=== PATIENT | female | born 1965 | race Caucasian/White ===

== ENCOUNTER 2018-07-13 06:17 | Day surgery (SDC) | payer OTHER ==
[2018-07-13] MEDS ORDERED: Sodium Chloride 0.9% 1,000 ML IV SCH (07:00)
[2018-07-13] MEDS ORDERED: Propofol 200 MG/20 ML SDV ONE ×2 (07:37→08:14)
[2018-07-13] MEDS ORDERED: Midazolam 1 MG/ML 2 ML SDV ONE (07:37)
[2018-07-13] MEDS ORDERED: fentaNYL 100 MCG/2 ML SDV ONE (07:37)
--- NOTE | 2018-07-13 11:02 | OR ---
DATE OF PROCEDURE: 07/13/2018 PROCEDURE: Colonoscopy. FINDINGS: 1. Transverse colon polyp, approximately 5 mm, completely removed using cold biopsy forceps. 2. Descending colon polyp #1 approximately 5 mm, completely removed using cold biopsy forceps. 3. Sigmoid colon polyp, approximately 8 mm, completely removed using cold snare. COMPLICATIONS: None. FOOD QUALITY TESTER: None. ANESTHESIA: MAC. RISKS: Risks, benefits, alternatives, and limitations including, but not limited to infection, bleeding, and perforation were explained to the patient who wished to proceed. PREOPERATIVE DIAGNOSIS: History of colon polyps/screening colonoscopy. POSTOPERATIVE DIAGNOSIS: History of colon polyps/screening colonoscopy. PROCEDURE IN DETAIL: The patient was placed in left lateral decubitus position. Digital rectal exam was performed without abnormality. The scope was introduced and advanced atraumatically to the ileocecal valve. The scope was brought back to the ascending, transverse, and descending colon, and retroflexed. The patient did have very tortuous sigmoid colon. The prep was moderately acceptable. The aforementioned polyps were all identified and completely removed. No abnormalities on retroflex. The patient tolerated the procedure well. Dimas Giordano MD /[id number]
[2018-07-13 12:32] VITALS: BP 115/56
== END 2018-07-13 10:23 | disposition home or self-care (01) ==
LOC: JP.SDS 06:17
PROVIDERS: ATTEND Surgery
DX: Z12.11 Encounter for screening for malignant neoplasm of colon (principal); D12.3 Benign neoplasm of transverse colon; K63.5 Polyp of colon; I10 Essential (primary) hypertension; E66.9 Obesity, unspecified; K21.9 Gastro-esophageal reflux disease without esophagitis; E78.5 Hyperlipidemia, unspecified; F32.9 Major depressive disorder, single episode, unspecified; Z86.010 Personal history of colon polyps; Z88.0 Allergy status to penicillin
CPT/HCPCS: 45380; 45385; J2250; J2704; J3010; J7030

== ENCOUNTER 2019-08-11 23:56 | Emergency (ER) | payer OTHER ==
[2019-08-12] MEDS ORDERED: Sodium Chloride 0.9% 10 ML Syringe FLUSH PRN (00:31)
[2019-08-12] MEDS ORDERED: Ondansetron 4 MG/2 ML SDV IVPUSH ONE (00:33)
[2019-08-12] MEDS ORDERED: fentaNYL 100 MCG/2 ML SDV IVPUSH ONE (00:33)
--- NOTE | 2019-08-12 00:35 | EDM.PDOC ---
ED HPI GENERAL MEDICAL PROBLEM - General Chief Complaint: Abdominal Pain Stated Complaint: STOMACH PAINS Time Seen by Provider: 08/12/19 00:29 Source of Information: Reports: Patient, RN Notes Reviewed History Limitations: Reports: No Limitations - History of Present Illness INITIAL COMMENTS - FREE TEXT/NARRATIVE: 54-year-old female presents emergency department a complaint of abdominal pain, she states the pain awoke her from sleep about 1 hour prior significant nausea and vomiting the most remarkable thing for her she has a large amount of abdominal distention. States she felt fine yesterday. No shortness of breath or chest pain Upper Abdomen Pain Score (Numeric/FACES): 8 - Related Data Allergies Allergy/AdvReac Type Severity Reaction Status Date / Time Penicillins Allergy Other Verified 08/12/19 00:14 Home Meds: Home Meds Aspirin [Children's Aspirin] 81 mg PO DAILY 06/24/16 [History] Lisinopril/Hydrochlorothiazide [Lisinopril-Hctz 10-12.5 mg Tab] 1 tab PO DAILY 06/24/16 [History] Metoprolol Tartrate 100 mg PO DAILY 06/24/16 [History] Venlafaxine [Effexor] 75 mg PO DAILY 06/24/16 [History] Venlafaxine [Venlafaxine HCl ER] 150 mg PO DAILY 06/24/16 [History] Escitalopram [Lexapro] 20 mg PO DAILY 07/11/18 [History] Magnesium Oxide [Magnesium] 400 mg PO DAILY 08/12/19 [History] Past Medical History HEENT History: Reports: Impaired Vision Cardiovascular History: Reports: High Cholesterol, Hypertension Gastrointestinal History: Reports: GERD HHAS History: Reports: Musculoskeletal History: Reports: Back Pain, Chronic, Osteoarthritis Neurological History: Reports: Migraines Psychiatric History: Reports: Depression, Panic Attack Endocrine/Metabolic History: Reports: Obesity/BMI 30+ - Infectious Disease History Infectious Disease History: Reports: Chicken Pox - Past Surgical History GI Surgical History: Reports: Appendectomy, EGD Endocrine Surgical History: Reports: None Neurological Surgical History: Reports: None Social & Family History - Tobacco Use Smoking Status *Q: Never Smoker Second Hand Smoke Exposure: No - Caffeine Use Caffeine Use: Reports: Coffee - Recreational Drug Use Recreational Drug Use: No ED ROS GENERAL - Review of Systems Review Of Systems: See Below Constitutional: Denies: Fever HEENT: Reports: No Symptoms Respiratory: Reports: No Symptoms Cardiovascular: Reports: No Symptoms GI/Abdominal: Reports: Abdominal Pain, Flatus, Nausea, Vomiting : Reports: No Symptoms ED EXAM, GI/ABD - Physical Exam Exam: See Below Exam Limited By: No Limitations General Appearance: Alert, Mild Distress Respiratory/Chest: No Respiratory Distress, Lungs Clear, Normal Breath Sounds, No Accessory Muscle Use, Chest Non-Tender Cardiovascular: Regular Rate, Rhythm, No Murmur GI/Abdominal Exam: Soft, Distended, Tender Course - Vital Signs Last Recorded V/S: Last Vital Signs Temp 98.6 F 08/12/19 02:38 Pulse 98 08/12/19 02:38 Resp 19 08/12/19 02:38 BP 154/78 H 08/12/19 02:38 Pulse Ox 98 08/12/19 02:38 - Orders/Labs/Meds Orders: Active Orders 24 hr Category Date Time Status Peripheral IV Care [RC] . DIRECTED Care 08/12/19 00:32 Active Lactated Ringers [Ringers, Lactated] 1,000 ml Med 08/12/19 00:45 Active IV ASDIRECTED Sodium Chloride 0.9% [Saline Flush] Med 08/12/19 00:31 Active 10 ml FLUSH ASDIRECTED PRN Peripheral IV Insertion Adult [OM.PC] Urgent Oth 08/12/19 00:31 Ordered Medication Orders Lactated Ringer's (Ringers, Lactated) 1,000 mls @ 999 mls/hr IV ASDIRECTED GUILHERME Last Admin: 08/12/19 00:53 Dose: 999 mls/hr Sodium Chloride (Saline Flush) 10 ml FLUSH ASDIRECTED PRN PRN Reason: Keep Vein Open Labs: Laboratory Tests 08/12/19 08/12/19 08/12/19 Range/Units 00:45 00:45 00:45 WBC 6.2 (4.5-11.0) K/uL RBC 5.36 (3.30-5.50) M/uL Hgb 17.0 H (12.0-15.0) g/dL Hct 51.8 H (36.0-48.0) % MCV 97 (80-98) fL MCH 32 H (27-31) pg MCHC 33 (32-36) % Plt Count 146 L (150-400) K/uL Neut % (Auto) 79 H (36-66) % Lymph % (Auto) 12 L (24-44) % Coos % (Auto) 6 (2-6) % Eos % (Auto) 3 (2-4) % Baso % (Auto) 0 (0-1) % Sodium 142 (140-148) mmol/L Potassium 4.8 (3.6-5.2) mmol/L Chloride 101 (100-108) mmol/L Carbon Dioxide 24 (21-32) mmol/L Anion Gap 16.8 H (5.0-14.0) mmol/L BUN 11 (7-18) mg/dL Creatinine 0.6 (0.6-1.0) mg/dL Est Cr Clr Drug Dosing 103.02 mL/min Estimated GFR (MDRD) > 60 (>60) Glucose 122 H (74-106) mg/dL Lactic Acid 3.2 H (0.4-2.0) mmol/L Calcium 9.2 (8.5-10.1) mg/dL Total Bilirubin 0.6 (0.2-1.0) mg/dL AST 55 H (15-37) U/L ALT 55 (12-78) U/L Alkaline Phosphatase 148 H (46-116) U/L Troponin I < 0.017 (0.000-0.056) ng/mL Total Protein 7.7 (6.4-8.2) g/dL Albumin 3.7 (3.4-5.0) g/dL Globulin 4.0 H (2.3-3.5) g/dL Albumin/Globulin Ratio 0.9 L (1.2-2.2) Lipase 221 (73-393) U/L Urine Color (YELLOW) Urine Appearance (CLEAR) Urine pH (5.0-8.0) Ur Specific [place] (1.008-1.030) Urine Protein (NEGATIVE) mg/dL Urine Glucose (UA) (NEGATIVE) mg/dL Urine Ketones (NEGATIVE) mg/dL Urine Occult Blood (NEGATIVE) Urine Nitrite (NEGATIVE) Urine Bilirubin (NEGATIVE) Urine Urobilinogen (0.2-1.0) EU/dL Ur Leukocyte Esterase (NEGATIVE) Urine RBC (0-5) Urine WBC (0-5) Ur Epithelial Cells Amorphous Sediment Urine Bacteria Urine Mucus 08/12/19 Range/Units 02:13 WBC (4.5-11.0) K/uL RBC (3.30-5.50) M/uL Hgb (12.0-15.0) g/dL Hct (36.0-48.0) % MCV (80-98) fL MCH (27-31) pg MCHC (32-36) % Plt Count (150-400) K/uL Neut % (Auto) (36-66) % Lymph % (Auto) (24-44) % Coos % (Auto) (2-6) % Eos % (Auto) (2-4) % Baso % (Auto) (0-1) % Sodium (140-148) mmol/L Potassium (3.6-5.2) mmol/L Chloride (100-108) mmol/L Carbon Dioxide (21-32) mmol/L Anion Gap (5.0-14.0) mmol/L BUN (7-18) mg/dL Creatinine (0.6-1.0) mg/dL Est Cr Clr Drug Dosing mL/min Estimated GFR (MDRD) (>60) Glucose (74-106) mg/dL Lactic Acid (0.4-2.0) mmol/L Calcium (8.5-10.1) mg/dL Total Bilirubin (0.2-1.0) mg/dL AST (15-37) U/L ALT (12-78) U/L Alkaline Phosphatase (46-116) U/L Troponin I (0.000-0.056) ng/mL Total Protein (6.4-8.2) g/dL Albumin (3.4-5.0) g/dL Globulin (2.3-3.5) g/dL Albumin/Globulin Ratio (1.2-2.2) Lipase (73-393) U/L Urine Color Yellow (YELLOW) Urine Appearance Clear (CLEAR) Urine pH 7.0 (5.0-8.0) Ur Specific [place] 1.010 (1.008-1.030) Urine Protein Negative (NEGATIVE) mg/dL Urine Glucose (UA) Negative (NEGATIVE) mg/dL Urine Ketones Negative (NEGATIVE) mg/dL Urine Occult Blood Trace-intact H (NEGATIVE) Urine Nitrite Positive H (NEGATIVE) Urine Bilirubin Negative (NEGATIVE) Urine Urobilinogen 0.2 (0.2-1.0) EU/dL Ur Leukocyte Esterase Small H (NEGATIVE) Urine RBC 0-5 (0-5) Urine WBC 5-10 H (0-5) Ur Epithelial Cells Few Amorphous Sediment Not seen Urine Bacteria Few Urine Mucus Not seen Meds: Medications Generic Name Dose Route Start Last Admin Trade Name Freq PRN Reason Stop Dose Admin Lactated Ringer's 1,000 mls @ 999 mls/hr 08/12/19 00:45 08/12/19 00:53 Ringers, Lactated IV 999 mls/hr ASDIRECTED GUILHERME Administration Sodium Chloride 10 ml 08/12/19 00:31 Saline Flush FLUSH ASDIRECTED PRN Keep Vein Open Discontinued Medications Generic Name Dose Route Start Last Admin Trade Name Freq PRN Reason Stop Dose Admin Fentanyl 50 mcg 08/12/19 00:33 08/12/19 00:54 Sublimaze IVPUSH 08/12/19 00:34 50 mcg ONETIME ONE Administration Sodium Chloride 85 mls @ 4 mls/sec 08/12/19 00:53 08/12/19 01:05 Normal Saline IV 08/12/19 00:54 4 mls/sec ASDIRECTED STA Administration Iopamidol 150 ml 08/12/19 00:52 08/12/19 01:05 Isovue-300 (61%) IV 08/12/19 00:53 150 ml . DIRECTED STA Administration Ondansetron HCl 4 mg 08/12/19 00:33 08/12/19 00:53 Zofran IVPUSH 08/12/19 00:34 4 mg ONETIME ONE Administration Departure - Departure Time of Disposition: 02:46 Disposition: Home, Self-Care 01 Condition: Fair Clinical Impression: UTI (urinary tract infection) Qualifiers: Urinary tract infection type: acute cystitis Hematuria presence: without hematuria Qualified Code(s): N30.00 - Acute cystitis without hematuria - Discharge Information Instructions: Urinary Tract Infection, Adult, [id number] Referrals: PCP,None [Primary Care Provider] - Forms: ED Department Discharge Additional Instructions: Take full course of antibiotics, please followup with your primary care provider in 3-5 days if not better, please call return to the emergency department with worsening of symptoms. Sepsis Event Note - Evaluation Sepsis Screening Result: Possible Sepsis Risk - Focused Exam Vital Signs: Vital Signs Temp Pulse Resp BP Pulse Ox 08/12/19 02:38 98.6 F 98 19 154/78 H 98 08/12/19 00:18 96.6 F L 115 H 12 172/78 H 98 08/12/19 00:04 96.1 F L 117 H 16 176/96 H 98 Date Exam was Performed: 08/12/19 Time Exam was Performed: 02:45 - My Orders Last 24 Hours: My Active Orders 08/12/19 00:31 Sodium Chloride 0.9% [Saline Flush] 10 ml FLUSH ASDIRECTED PRN Peripheral IV Insertion Adult [OM.PC] Urgent 08/12/19 00:32 Peripheral IV Care [RC] . DIRECTED 08/12/19 00:45 Lactated Ringers [Ringers, Lactated] 1,000 ml IV ASDIRECTED - Assessment/Plan Last 24 Hours: My Active Orders 08/12/19 00:31 Sodium Chloride 0.9% [Saline Flush] 10 ml FLUSH ASDIRECTED PRN Peripheral IV Insertion Adult [OM.PC] Urgent 08/12/19 00:32 Peripheral IV Care [RC] . DIRECTED 08/12/19 00:45 Lactated Ringers [Ringers, Lactated] 1,000 ml IV ASDIRECTED Plan: Assessment Acuity = acute Site and laterality = urinary tract infection Etiology = probable bacterial cause Manifestations = nausea and vomiting Location of injury = Home Lab values = CBC unremarkable CMP unremarkable lactic acid elevated 3.2 consistent lactic acidosis probably related to nausea and vomiting, troponins negative urinalysis is positive for nitrates with 5-10 WBCs consistent with pyuria CT scan shows no acute process Plan Good relief with treatment provided in the ED which did include fentanyl and Zofran as well as 1 L fluids, urine culture is pending placed on Bactrim DS 1 tab p.o. twice daily x3 days follow-up primary care 3 to 5 days if not better This note was dictated using [employer] voice recognition software please call with any questions on syntax or grammar.
[2019-08-12] MEDS ORDERED: Lactated Ringers 1,000 ML IV SCH (00:45)
[2019-08-12] MEDS ORDERED: Iopamidol 612 MG/ML 150 ML Bottle IV STA (00:52)
--- NOTE | 2019-08-12 01:53 | CRLCT ---
INDICATION: Abdominal distension COMPARISON: None available TECHNIQUE: CT examination of the abdomen and pelvis was performed with the uneventful intravenous administration of 150 cc of Isovue-300 while 3 mm thick axial sections were obtained from the lung bases through the pubic symphysis. Oral contrast was not administered. Please note that all CT scans at this facility use dose modulation, iterative reconstruction, and/or weight-based dosing when appropriate to reduce radiation dose to as low as reasonably achievable. FINDINGS: In the abdomen, the liver, spleen, pancreas, and adrenals are normal in appearance. The kidneys are normal in appearance. There is a diverticulum arising from the anterior gallbladder measuring 3.5 centimeters in diameter. The gallbladder is moderately distended but is otherwise normal in appearance. The abdominal aorta is normal in caliber with no sign of dilatation. There is no sign of retroperitoneal mass or adenopathy. The stomach, loops of small bowel, and colon in the abdomen are normal in appearance. In the pelvis, the appendix is nonvisualized, but there is no sign of an inflammatory process in the area of the appendix. Surgical clips are seen in the area of the appendix consistent with previous appendectomy. The loops of small bowel and colon in the pelvis are normal in appearance. The uterus and adnexal regions are normal in appearance. The urinary bladder is normal in appearance. There is no sign of pelvic or inguinal mass or adenopathy. There is no sign of any free air or free fluid in the abdomen or pelvis. The lung bases are clear. There is grade 1 anterior subluxation of L4 on L5 without L4 pars interarticularis defects. There is mild L4-5 disc degenerative disease. There is grade 1 anterior subluxation of L5 on S1 without L5 pars interarticularis defects. The L5-S1 disc space is normal in height. IMPRESSION: Nothing seen to correlate with the history of abdominal distention. No sign of distension of the stomach, small bowel, or colon. CT of the abdomen shows nonspecific moderate distention of the gallbladder with what appears to be a diverticulum arising from the anterior gallbladder. Normal CT of the pelvis with contrast. Please note that all CT scans at this facility use dose modulation, iterative reconstruction, and/or weight-based dosing when appropriate to reduce radiation dose to as low as reasonably achievable. Dictated by Iván Rutherford MD @ Aug 12 2019 1:46AM Signed by Dr. Iván Rutherford @ Aug 12 2019 1:50AM
[2019-08-12 02:39] VITALS: BP 154/78; PULSE 98
== END 2019-08-12 03:13 | disposition home or self-care (01) ==
LOC: JP.ED 23:56
DX: N30.00 Acute cystitis without hematuria (principal); I10 Essential (primary) hypertension; E78.00 Pure hypercholesterolemia, unspecified; K21.9 Gastro-esophageal reflux disease without esophagitis; E66.9 Obesity, unspecified; Z68.35 Body mass index [BMI] 35.0-35.9, adult; Z79.82 Long term (current) use of aspirin; Z79.899 Other long term (current) drug therapy; Z88.0 Allergy status to penicillin
CPT/HCPCS: 36415; 74177; 80053; 81001; 83605; 83690; 84484; 85025; 87086; 96361; 96374; 96375; 99284; J2405; J3010; J7050; J7120; Q9967

== ENCOUNTER 2020-07-07 18:39 | Inpatient (IN) | payer OTHER ==
[2020-07-07] MEDS ORDERED: HYDROmorphone 1 MG/ML Syringe IM ONE (19:46)
--- NOTE | 2020-07-07 20:12 | EDM.PDOC ---
ED HPI GENERAL MEDICAL PROBLEM - General Chief Complaint: Lower Extremity Injury/Pain Stated Complaint: FELL HIT BACK AND BUTT ON STAIRS Time Seen by Provider: 07/07/20 19:30 Source of Information: Reports: Patient, Family History Limitations: Reports: No Limitations - History of Present Illness INITIAL COMMENTS - FREE TEXT/NARRATIVE: 55-year-old female slipped on her stairs about 6 hours ago landing hard on her tailbone and left buttock area. She has been icing the posterior aspect of the buttock and back but is having persistent swelling and pain. She can now no longer tolerate weightbearing or walking. No neuropathic symptoms down the extremities, no abdominal pain. Onset: Sudden Duration: Hour(s): (6 hours ago) Location: Reports: Back, Pelvis (Left buttock) Quality: Reports: Burning, Stabbing Worsens with: Reports: Other (Weightbearing), Movement Associated Symptoms: Reports: No Other Symptoms Left Lower Back Pain Score (Numeric/FACES): 0 - Related Data Allergies Allergy/AdvReac Type Severity Reaction Status Date / Time Penicillins Allergy Other Verified 07/07/20 19:33 Home Meds: Home Meds Aspirin [Children's Aspirin] 81 mg PO DAILY 06/24/16 [History] Lisinopril/Hydrochlorothiazide [Lisinopril-Hctz 10-12.5 mg Tab] 1 tab PO DAILY 06/24/16 [History] Metoprolol Tartrate 100 mg PO DAILY 06/24/16 [History] Venlafaxine [Effexor] 75 mg PO DAILY 06/24/16 [History] Venlafaxine [Venlafaxine HCl ER] 150 mg PO DAILY 06/24/16 [History] Escitalopram [Lexapro] 20 mg PO DAILY 07/11/18 [History] Magnesium Oxide [Magnesium] 400 mg PO DAILY 08/12/19 [History] atorvaSTATin [Lipitor] 1 tab PO DAILY 07/07/20 [History] Past Medical History HEENT History: Reports: Impaired Vision Cardiovascular History: Reports: High Cholesterol, Hypertension Gastrointestinal History: Reports: GERD 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: Musculoskeletal History: Reports: Back Pain, Chronic, Osteoarthritis Neurological History: Reports: Migraines Psychiatric History: Reports: Depression, Panic Attack Endocrine/Metabolic History: Reports: Obesity/BMI 30+ - Infectious Disease History Infectious Disease History: Reports: Chicken Pox - Past Surgical History HEENT Surgical History: Reports: None Cardiovascular Surgical History: Reports: None GI Surgical History: Reports: Appendectomy, EGD Endocrine Surgical History: Reports: None Neurological Surgical History: Reports: None Musculoskeletal Surgical History: Reports: None Social & Family History - Tobacco Use Tobacco Use Status *Q: Former Tobacco User Used Tobacco, but Quit: Yes Month/Year Tobacco Last Used: 07/2013 - Caffeine Use Caffeine Use: Reports: None - Alcohol Use Number of Drinks Per Day: 3 - Recreational Drug Use Recreational Drug Use: No Review of Systems - Review of Systems Review Of Systems: See Below Constitutional: Denies: Fever Respiratory: Reports: No Symptoms Cardiovascular: Reports: No Symptoms GI/Abdominal: Denies: Abdominal Pain Genitourinary: Reports: No Symptoms Skin: Denies: Bruising Neurological: Denies: Paresthesia ED EXAM, GENERAL - Physical Exam Exam: See Below Exam Limited By: No Limitations General Appearance: Alert, Anxious, Moderate Distress Eye Exam: Bilateral Eye: Normal Inspection Head: Atraumatic Respiratory/Chest: No Respiratory Distress, Lungs Clear Cardiovascular: Regular Rate, Rhythm Extremities: Other (Significant swelling around the left buttock with exquisite tenderness to any palpation) Neurological: Alert, Oriented Course - Vital Signs Last Recorded V/S: Last Vital Signs Temp 97.3 F 07/07/20 22:00 Pulse 74 07/07/20 22:00 Resp 18 07/07/20 22:00 BP 126/67 07/07/20 22:00 Pulse Ox 92 L 07/07/20 22:00 - Orders/Labs/Meds Orders: Active Orders 24 hr Category Date Time Status Admission Status [Patient Status] [ADT] Routine ADT 07/07/20 20:45 Active Medication Orders Hydromorphone HCl (Dilaudid) 0.5 mg IVPUSH Q2H PRN PRN Reason: Pain Last Admin: 07/07/20 22:05 Dose: 0.5 mg Documented by: ELISEO Sodium Chloride (Normal Saline) 1,000 mls @ 150 mls/hr IV ASDIRECTED GUILHERME Last Admin: 07/07/20 22:03 Dose: 150 mls/hr Documented by: ELISEO Influenza Virus Vaccine (Fluzone Quad Syringe) 60 mcg IM .ONCE ONE Stop: 07/08/20 09:01 Ondansetron HCl (Zofran) 4 mg IVPUSH Q4H PRN PRN Reason: Nausea/Vomiting Labs: Laboratory Tests 07/07/20 07/07/20 Range/Units 20:00 20:00 WBC 8.4 (4.5-11.0) K/uL RBC 4.11 (3.30-5.50) M/uL Hgb 13.4 D (12.0-15.0) g/dL Hct 40.6 (36.0-48.0) % MCV 99 H (80-98) fL MCH 33 H (27-31) pg MCHC 33 (32-36) % Plt Count 220 (150-400) K/uL Neut % (Auto) 59 (36-66) % Lymph % (Auto) 29 (24-44) % Chambers % (Auto) 7 H (2-6) % Eos % (Auto) 5 H (2-4) % Baso % (Auto) 2 H (0-1) % Sodium 138 L (140-148) mmol/L Potassium 3.4 L (3.6-5.2) mmol/L Chloride 101 (100-108) mmol/L Carbon Dioxide 28 (21-32) mmol/L Anion Gap 12.4 (5.0-14.0) mmol/L BUN 17 D (7-18) mg/dL Creatinine 0.8 (0.6-1.0) mg/dL Est Cr Clr Drug Dosing 76.36 mL/min Estimated GFR (MDRD) > 60 (>60) Glucose 113 H (74-106) mg/dL Calcium 8.6 (8.5-10.1) mg/dL Meds: Medications Generic Name Dose Route Start Last Admin Trade Name Freq PRN Reason Stop Dose Admin Hydromorphone HCl 0.5 mg 07/07/20 21:53 07/07/20 22:05 Dilaudid IVPUSH 0.5 mg Q2H PRN Administration Pain Sodium Chloride 1,000 mls @ 150 mls/hr 07/07/20 22:00 07/07/20 22:03 Normal Saline IV 150 mls/hr ASDIRECTED GUILHERME Administration Influenza Virus Vaccine 60 mcg 07/08/20 09:00 Fluzone Quad [id number] Syringe IM 07/08/20 09:01 .ONCE ONE Ondansetron HCl 4 mg 07/07/20 21:55 Zofran IVPUSH Q4H PRN Nausea/Vomiting Discontinued Medications Generic Name Dose Route Start Last Admin Trade Name Freq PRN Reason Stop Dose Admin Hydromorphone HCl 1 mg 07/07/20 19:46 07/07/20 19:53 Dilaudid IM 07/07/20 19:47 1 mg ONETIME ONE Administration Sodium Chloride 1,000 mls @ 150 mls/hr 07/07/20 20:45 07/07/20 21:35 Normal Saline IV 150 mls/hr ASDIRECTED GUILHERME Administration Influenza Virus Vaccine 1 each 07/07/20 21:48 Pharmacy To Dose - Influenza Vaccine IM 07/07/20 21:49 ONETIME ONE - Re-Assessments/Exams Free Text/Narrative Re-Assessment/Exam: 07/07/20 20:12 CBC, BMP obtained and the patient was given 1 mg of IM Dilaudid. CT the pelvis was ordered without contrast to assess the size of the hematoma and to look for any underlying possible fractures. 07/07/20 20:54 IMPRESSION: New large deep subcutaneous hematoma in the left buttock, extending from right of midline across the left hip and iliac wing. No sign of any associated underlying acute osseous injury, with intact appearance of the sacrum, left sacroiliac joint, left iliac wing, and left hip. Stable grade 1 anterior subluxation of L4 on L5 and of L5 on S1. Stable prominent bilateral L5-S1 and moderate bilateral L4-5 facet arthropathy. Above findings were discussed with Dr. Bush, patient will be admitted for pain control tonight and evaluated tomorrow for possible surgical removal of the hematoma. Departure - Departure Time of Disposition: 21:47 Disposition: Admitted As Inpatient 65 Clinical Impression: Traumatic hematoma of buttock Qualifiers: Encounter type: initial encounter Qualified Code(s): S30.0XXA - Contusion of lower back and pelvis, initial encounter - Discharge Information Sepsis Event Note (ED) - Evaluation Sepsis Screening Result: No Definite Risk - Focused Exam Vital Signs: Vital Signs Temp Pulse Resp BP Pulse Ox 07/07/20 19:23 97.4 F 81 16 111/67 94 L
--- NOTE | 2020-07-07 20:41 | CRLCT ---
INDICATION: Pain after pelvic trauma. Status post fall, striking the buttock and back on steps. Pain greater on the left than the right. COMPARISON: CT of the abdomen and pelvis from 08/12/2019 TECHNIQUE: CT examination of the pelvis was performed without contrast enhancement using spiral technique to obtain 3 mm thick axial, sagittal, and coronal sections using a bone algorithm from the superior iliac crest through the pubic symphysis. Oral contrast was not administered. Please note that all CT scans at this facility use dose modulation, iterative reconstruction, and/or weight-based dosing when appropriate to reduce radiation dose to as low as reasonably achievable. FINDINGS: : There is a new large left and central deep subcutaneous hematoma extending from the L4-5 level inferiorly through the distal sacrum, extending from right of midline laterally to the left overlying the lateral aspect of the left hip and iliac wing. There is no sign of underline acute osseous injury. There is no sign of fracture of the sacrum, iliac wings, hips, or inferior lumbar spine. There is no sign of dislocation of the hips. There is no sign of disruption of the sacroiliac joints or pubic symphysis. There is stable grade 1 anterior subluxation of L4 on L5 and of L5 on S1. Again seen is prominence bilateral L5-S1 and moderate L4-5 facet arthropathy. In the pelvis, the appendix is nonvisualized, but there is no sign of an inflammatory process in the area of the appendix. Surgical clips are present in the area of the appendix from previous appendectomy. The loops of small bowel and colon in the pelvis are normal in appearance. The uterus and adnexal regions are normal in appearance. The urinary bladder is normal in appearance. There is no sign of pelvic or inguinal mass or adenopathy. There is no sign of free fluid or free air in the pelvis. IMPRESSION: New large deep subcutaneous hematoma in the left buttock, extending from right of midline across the left hip and iliac wing. No sign of any associated underlying acute osseous injury, with intact appearance of the sacrum, left sacroiliac joint, left iliac wing, and left hip. Stable grade 1 anterior subluxation of L4 on L5 and of L5 on S1. Stable prominent bilateral L5-S1 and moderate bilateral L4-5 facet arthropathy. Please note that all CT scans at this facility use dose modulation, iterative reconstruction, and/or weight-based dosing when appropriate to reduce radiation dose to as low as reasonably achievable. Dictated by Iván Rutherford MD @ Jul 07 2020 8:30PM Signed by Dr. Iván Rutherford @ Jul 07 2020 8:39PM
[2020-07-07] MEDS ORDERED: Sodium Chloride 0.9% 1,000 ML IV SCH (20:45)
[2020-07-07] MEDS ORDERED: Ondansetron 4 MG/2 ML SDV IVPUSH PRN (21:55)
[2020-07-07] MEDS: Sodium Chloride 0.9% 1,000 ML IV SCH (22:03)
[2020-07-07] MEDS: HYDROmorphone 0.5 MG/0.5 ML Syringe IVPUSH PRN (22:05)
[2020-07-08] MEDS: HYDROmorphone 0.5 MG/0.5 ML Syringe IVPUSH PRN ×5 (02:18→23:14)
[2020-07-08] MEDS: Sodium Chloride 0.9% 1,000 ML IV SCH (04:20)
[2020-07-08] MEDS ORDERED: Potassium Chloride Riders 40 MEQ in Premix Bag 1 BAG IV ONE ×2 (06:55→07:26)
--- NOTE | 2020-07-08 08:19 | PCM.HP.2 ---
H&P History of Present Illness - General Date of Service: 07/08/20 Admit Problem/Dx: Admission Diagnosis/Problem Admission Diagnosis/Problem Hematoma of left hip Source of Information: Patient History Limitations: Reports: No Limitations - History of Present Illness Initial Comments - Free Text/Narative: Altagracia fell yesterday slipping on the ice on a step going down the stairs. She is seen in consultation for left buttock hematoma. Severity: Moderate Improves with: Reports: Medication Worsens with: Reports: Movement Associated Symptoms: Reports: Fever/Chills Left Lower Back Pain Score (Numeric/FACES): 0 - Related Data Allergies/Adverse Reactions: Allergies Allergy/AdvReac Type Severity Reaction Status Date / Time Penicillins Allergy Other Verified 07/07/20 19:33 Home Medications: Home Meds Aspirin [Children's Aspirin] 81 mg PO DAILY 06/24/16 [History] Lisinopril/Hydrochlorothiazide [Lisinopril-Hctz 10-12.5 mg Tab] 1 tab PO DAILY 06/24/16 [History] Metoprolol Tartrate 100 mg PO DAILY 06/24/16 [History] Venlafaxine [Effexor] 75 mg PO DAILY 06/24/16 [History] Venlafaxine [Venlafaxine HCl ER] 150 mg PO DAILY 06/24/16 [History] Escitalopram [Lexapro] 20 mg PO DAILY 07/11/18 [History] Magnesium Oxide [Magnesium] 400 mg PO DAILY 08/12/19 [History] atorvaSTATin [Lipitor] 1 tab PO DAILY 07/07/20 [History] Past Medical History HEENT History: Reports: Impaired Vision Cardiovascular History: Reports: High Cholesterol, Hypertension Gastrointestinal History: Reports: GERD HHAS History: Reports: Musculoskeletal History: Reports: Back Pain, Chronic, Osteoarthritis Neurological History: Reports: Migraines Psychiatric History: Reports: Depression, Panic Attack Endocrine/Metabolic History: Reports: Obesity/BMI 30+ - Infectious Disease History Infectious Disease History: Reports: Chicken Pox - Past Surgical History HEENT Surgical History: Reports: None Cardiovascular Surgical History: Reports: None GI Surgical History: Reports: Appendectomy, EGD Endocrine Surgical History: Reports: None Neurological Surgical History: Reports: None Musculoskeletal Surgical History: Reports: None Social & Family History - Tobacco Use Tobacco Use Status *Q: Former Tobacco User Used Tobacco, but Quit: Yes Month/Year Tobacco Last Used: 07/2013 - Caffeine Use Caffeine Use: Reports: None - Alcohol Use Number of Drinks Per Day: 3 - Recreational Drug Use Recreational Drug Use: No H&P Review of Systems - Review of Systems: Review Of Systems: Comprehensive ROS is negative, except as noted in HPI. Exam - Exam Exam: See Below - Vital Signs Vital Signs: Last Vital Signs Temp 97.4 F 07/08/20 06:51 Pulse 88 07/08/20 06:51 Resp 16 07/08/20 06:51 BP 152/68 H 07/08/20 06:51 Pulse Ox 98 07/08/20 06:51 Weight: 234 lb 5.622 oz (Large Hematoma left buttock ) - Exam Quality Assessment: DVT Prophylaxis General: Alert, Oriented, Cooperative HEENT: PERRLA, Conjunctiva Clear Neck: Supple, Trachea Midline Lungs: Clear to Auscultation, Normal Respiratory Effort Cardiovascular: Regular Rate, Regular Rhythm GI/Abdominal Exam: Soft, Non-Tender (Female) Exam: Deferred Rectal (Female) Exam: Deferred Back Exam: Normal Inspection, Full Range of Motion Extremities: Normal Inspection, Normal Range of Motion Skin: Warm, Dry, Cool Neurological: Cranial Nerves Intact Neuro Extensive - Mental Status: Alert, Oriented x3, Normal Mood/Affect Neuro Extensive - Motor, Sensory, Reflexes: CN II-XII Intact Psychiatric: Alert, Normal Affect, Normal Mood - Patient Data Lab Results Last 24 hrs: Laboratory Results - last 24 hr 07/07/20 07/07/20 07/07/20 Range/Units 20:00 20:00 21:23 WBC 8.4 (4.5-11.0) K/uL RBC 4.11 (3.30-5.50) M/uL Hgb 13.4 D (12.0-15.0) g/dL Hct 40.6 (36.0-48.0) % MCV 99 H (80-98) fL MCH 33 H (27-31) pg MCHC 33 (32-36) % Plt Count 220 (150-400) K/uL Neut % (Auto) 59 (36-66) % Lymph % (Auto) 29 (24-44) % [place] % (Auto) 7 H (2-6) % Eos % (Auto) 5 H (2-4) % Baso % (Auto) 2 H (0-1) % Sodium 138 L (140-148) mmol/L Potassium 3.4 L (3.6-5.2) mmol/L Chloride 101 (100-108) mmol/L Carbon Dioxide 28 (21-32) mmol/L Anion Gap 12.4 (5.0-14.0) mmol/L BUN 17 D (7-18) mg/dL Creatinine 0.8 (0.6-1.0) mg/dL Est Cr Clr Drug Dosing 76.36 mL/min Estimated GFR (MDRD) > 60 (>60) Glucose 113 H (74-106) mg/dL Calcium 8.6 (8.5-10.1) mg/dL SARS-CoV-2 RNA (JOSI) Negative (NEGATIVE) 07/08/20 Range/Units 04:11 WBC 6.8 (4.5-11.0) K/uL RBC 3.70 (3.30-5.50) M/uL Hgb 12.1 (12.0-15.0) g/dL Hct 36.8 (36.0-48.0) % MCV 100 H (80-98) fL MCH 33 H (27-31) pg MCHC 33 (32-36) % Plt Count 182 (150-400) K/uL Neut % (Auto) 69 H (36-66) % Lymph % (Auto) 21 L (24-44) % [place] % (Auto) 6 (2-6) % Eos % (Auto) 4 (2-4) % Baso % (Auto) 0 (0-1) % Sodium (140-148) mmol/L Potassium (3.6-5.2) mmol/L Chloride (100-108) mmol/L Carbon Dioxide (21-32) mmol/L Anion Gap (5.0-14.0) mmol/L BUN (7-18) mg/dL Creatinine (0.6-1.0) mg/dL Est Cr Clr Drug Dosing mL/min Estimated GFR (MDRD) (>60) Glucose (74-106) mg/dL Calcium (8.5-10.1) mg/dL SARS-CoV-2 RNA (JOSI) (NEGATIVE) Result Diagrams: 07/08/20 04:11 07/07/20 20:00 Sepsis Event Note - Evaluation Sepsis Screening Result: No Definite Risk - Focused Exam Vital Signs: Vital Signs Temp Pulse Resp BP Pulse Ox 07/08/20 06:51 97.4 F 88 16 152/68 H 98 07/08/20 03:00 97.1 F 83 16 111/49 L 95 07/07/20 22:00 97.3 F 74 18 126/67 92 L - Problem List (1) UTI (urinary tract infection) SNOMED Code(s): 26756898 ICD Code: N39.0 - URINARY TRACT INFECTION, SITE NOT SPECIFIED Status: Acute Current Visit: No Qualifiers: Urinary tract infection type: acute cystitis Hematuria presence: without hematuria Qualified Code(s): N30.00 - Acute cystitis without hematuria (2) Traumatic hematoma of buttock SNOMED Code(s): 25153273, 428951442 ICD Code: S30.0XXA - CONTUSION OF LOWER BACK AND PELVIS, INITIAL ENCOUNTER Status: Acute Current Visit: Yes Qualifiers: Encounter type: initial encounter Qualified Code(s): S30.0XXA - Contusion of lower back and pelvis, initial encounter Problem List Initiated/Reviewed/Updated: Yes Orders Last 24hrs: Active Orders 24 hr Category Date Time Status Admission Status [Patient Status] [ADT] Routine ADT 07/07/20 20:45 Active Influenza Vaccine Charge [RC] .DISCHARGE Care 07/07/20 21:49 Active Verify Patient Consent Obtain [RC] ASDIRECTED Care 07/08/20 07:24 Active Vital Signs [RC] Q4H Care 07/07/20 21:56 Active Full Liquid Diet [DIET] Diet 07/08/20 Breakfast Ordered NPO [Nothing Per Oral Diet] [DIET] Diet 07/08/20 Breakfast Active Flu Vacc [id number](6Mos Up)/Pf [Fluzone Quad Med 07/08/20 09:00 Once Syringe] 60 mcg IM .ONCE ONE HYDROmorphone [Dilaudid] Med 07/07/20 21:53 Active 0.5 mg IVPUSH Q2H PRN Ondansetron [Zofran] Med 07/07/20 21:55 Active 4 mg IVPUSH Q4H PRN Potassium Chloride 20 meq Med 07/08/20 08:00 Active Lidocaine 1% [Xylocaine 1%] 2 ml Sodium Chloride 0.9% [Normal Saline] 100 ml IV Q2H Sodium Chloride 0.9% [Normal Saline] 1,000 ml Med 07/07/20 22:00 Active IV ASDIRECTED cefOXitin [Mefoxin] 2 gm Med 07/08/20 15:00 Active Sodium Chloride 0.9% [Normal Saline] 50 ml IV ONCALL Code Status [Resuscitation Status] Routine Resus Stat 07/07/20 21:56 Ordered Medication Orders Hydromorphone HCl (Dilaudid) 0.5 mg IVPUSH Q2H PRN PRN Reason: Pain Last Admin: 07/08/20 02:18 Dose: 0.5 mg Documented by: Admin: 07/07/20 22:05 Dose: 0.5 mg Documented by: ELISEO Sodium Chloride (Normal Saline) 1,000 mls @ 150 mls/hr IV ASDIRECTED GUILHERME Last Admin: 07/08/20 04:20 Dose: 150 mls/hr Documented by: Infusion: 07/08/20 04:20 Dose: 150 mls/hr Documented by: Admin: 07/07/20 22:03 Dose: 150 mls/hr Documented by: ELISEO Potassium Chloride 20 meq/Lidocaine HCl 2 ml/ Sodium Chloride 112 mls @ 56 mls/hr IV Q2H GUILHERME Stop: 07/08/20 11:59 Cefoxitin Sodium 2 gm/ Sodium (Chloride) 50 mls @ 100 mls/hr IV ONCALL ONE Stop: 07/08/20 15:29 Influenza Virus Vaccine (Fluzone Quad [id number] Syringe) 60 mcg IM .ONCE ONE Stop: 07/08/20 09:01 Ondansetron HCl (Zofran) 4 mg IVPUSH Q4H PRN PRN Reason: Nausea/Vomiting Assessment: Large Hematoma Left Buttock Plan: Schedule/consent signed for Incision and Drainage of Left Buttock Hematoma General Anesthesia - 07/08/20 - 1500 - Case to follow - Fidencio Bush MD NPO after Breakfast - May have full liquids for breakfast 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 Plan to be discharged in AM After preoperative evaluation and discuss of possible risks and complication patient wishes to proceed with surgical procedure. Patient cleared for General anesthesia Plan discharge in AM [facility] 07/08/20 - Mortality Measure Prognosis:: Good
[2020-07-08] MEDS: Potassium Chloride 20 MEQ, Lidocaine 1% 2 ML in Sodium Chloride 0.9% 100 ML IV SCH ×2 (08:41→11:29)
[2020-07-08] MEDS ORDERED: FLU VACC QS2020-21(6MOS UP)/PF 60 MCG/0.5 ML SYRINGE IM ONE (09:00)
[2020-07-08] MEDS ORDERED: fentaNYL 250 MCG/5 ML SDV ONE (11:01)
[2020-07-08] MEDS ORDERED: Dexamethasone 4 MG/ML SDV ONE (11:02)
[2020-07-08] MEDS ORDERED: Propofol 200 MG/20 ML SDV ONE (11:02)
[2020-07-08] MEDS ORDERED: Neostigmine Methylsulfate 1 MG/ML 5 ML Syringe ONE (11:02)
[2020-07-08] MEDS ORDERED: Succinylcholine 200 MG/10 ML MDV ONE (11:02)
[2020-07-08] MEDS ORDERED: Ondansetron 4 MG/2 ML SDV ONE (11:02)
[2020-07-08] MEDS ORDERED: Glycopyrrolate 0.2 MG/ML 5 ML MDV ONE (11:02)
[2020-07-08] MEDS ORDERED: Rocuronium 50 MG/5 ML Vial ONE (11:02)
[2020-07-08] MEDS ORDERED: Lidocaine 1% with EPINEPHrine 1:100,000 50 ML MDV ONE (12:13)
[2020-07-08] MEDS ORDERED: Bupivacaine 0.5% 50 ML MDV ONE (12:13)
[2020-07-08] MEDS ORDERED: Meropenem 500 MG SDV ONE (12:14)
[2020-07-08] MEDS ORDERED: cefOXitin 2 GM in Sodium Chloride 0.9% 50 ML IV ONE (15:00)
[2020-07-08] MEDS ORDERED: Lactated Ringers 1,000 ML ONE (17:22)
[2020-07-08] MEDS ORDERED: Mupirocin Oint 22 GM Tube ONE (17:39)
[2020-07-08] MEDS ORDERED: Sugammadex Sodium 200 MG/2 ML VIAL ONE (17:49)
[2020-07-08] MEDS ORDERED: Dextrose 5%-Lactated Ringers 1,000 ML IV SCH (18:45)
[2020-07-08] MEDS: Acetaminophen 325 MG Tab PO SCH (20:26)
[2020-07-08] MEDS: Mupirocin Oint 22 GM Tube TOP SCH (21:19)
[2020-07-08] MEDS: cefOXitin 2 GM in Sodium Chloride 0.9% 50 ML IV SCH (23:04)
[2020-07-09] MEDS: Acetaminophen 325 MG Tab PO SCH (00:18)
[2020-07-09] MEDS: cefOXitin 2 GM in Sodium Chloride 0.9% 50 ML IV SCH (05:57)
[2020-07-09 07:01] VITALS: BP 140/72; PULSE 95
[2020-07-09] MEDS ORDERED: Acetaminophen 325 MG Tab PO SCH (08:00)
[2020-07-09] MEDS: Mupirocin Oint 22 GM Tube TOP SCH (09:34)
--- NOTE | 2020-07-09 13:26 | DISCH ---
ADMISSION DIAGNOSES: Traumatic hematoma, buttocks; essential hypertension; general anxiety disorder; obesity, body mass index 30 to 39.9. DISCHARGE DIAGNOSIS: Incision and drainage of large submuscular hematoma, left buttock. Date of procedure: 07/08/2020. Surgeon: Fidencio Bush MD. HISTORY: Altagracia Coleman is a pleasant 55-year-old female who slipped on the ice on her stair steps and developed a traumatic hematoma of left buttocks. After preoperative evaluation and discussion of possible risks and possible complications, she wished to proceed with surgical procedure. HOSPITAL COURSE: Altagracia had her surgery on 07/08/2020. She had no operative complications. On postoperative day #1, she was able to be discharged to home. Vital signs stable. She was taught how to do her MARVIN drain care. Up, ambulating, and no other associated signs and symptoms. OBJECTIVE: GENERAL: Altagracia Coleman is a pleasant 55-year-old female. VITAL SIGNS: Height 5 feet 6.92 inches, weight is 234 pounds. TPR is 95.6, 95, 16, blood pressure 140/72. HEENT: Negative. NECK: Supple. HEART: Regular rate and rhythm. LUNGS: Clear. ABDOMEN: Negative. SKIN: Incision, left buttocks shows a pressure dressing, it is dry and intact. MARVIN drains intact, draining a dark red drainage. MARVIN drain 1 put out 320 mL in 24 hours and MARVIN drain put out 180 mL in the past 24 hours. EXTREMITIES: Without peripheral edema. NEUROLOGIC: Intact. PSYCHIATRIC: Mood and affect appropriate. DISPOSITION: Discharged to home. CONDITION: Stable and improving. FOLLOWUP APPOINTMENT: With Fidencio Bush MD, at [facility] on 07/15/2020 at 8:15 a.m. HOME MEDICATIONS: To resume home medications as prior to admission to use Bactroban ointment around each MARVIN drain site t.i.d., tube was sent home with the patient; Tylenol 650 mg oral q.6 hours p.r.n. pain; Lipitor 1 tablet oral daily; lisinopril/hydrochlorothiazide 10/12.5 mg oral daily; Lexapro 20 mg p.o. daily; aspirin 81 mg p.o. daily; venlafaxine 150 mg p.o. daily; metoprolol tartrate 100 mg p.o. daily; and venlafaxine/Effexor 75 mg p.o. daily. DIET: Regular diet as tolerated. Drink 8 to 10 glasses of water a day. DISCHARGE INSTRUCTIONS: Wound incision care, to take off dressing tomorrow. Keep operative site clean and dry. Strip, empty, measure and record MARVIN drains 4 times a day. Bring record of MARVIN drainage to clinic appointments. Use incentive spirometer 10 times every hour while awake for 1 week. DISCHARGE INSTRUCTIONS: Notify provider if any fever, increased pain, swelling, redness, drainage, nausea or vomiting. /[id number]
--- NOTE | 2020-08-16 12:07 | OR ---
DATE OF PROCEDURE: 07/08/2020 SURGEON: Fidencio Bush MD PREOPERATIVE DIAGNOSIS: Large hematoma, left buttock area. POSTOPERATIVE DIAGNOSIS: Large submuscular hematoma, left buttock area, extending slightly on to right buttock area. OPERATIVE PROCEDURE: Incision and drainage of large submuscular hematoma, left and right buttock areas ([id number]). ANESTHESIA: General. INDICATIONS FOR PROCEDURE: This is a 55-year-old admitted after falling at her left buttock area and developing what appears to be a large hematoma. The plan is to proceed with incision and drainage of this with a general anesthetic. Potential risks of the procedure including bleeding, infection, some muscular disruption were all reviewed, and the patient wishes to proceed. DETAILS OF PROCEDURE: The patient was taken to the operating room and placed in a supine position. After general endotracheal anesthesia was induced, she was converted to a prone position, and the left buttock and surrounding areas were prepped and draped. In the posterolateral aspect of the left buttock, a transverse incision was made and carried down through the skin, subcutaneous tissue and gluteal muscles more or less in a plane directly over the pelvis. There was a large hematoma and this measured around 800 mL in the midline and this extended down, flushed with the sacral periosteum, and extending slightly toward the right into the submuscular plane. The hematoma was then evacuated by means of irrigation and manual up of some remaining clot until all areas were clear. The wound was irrigated with meropenem and Zyvox-containing saline solution. Two Colby-Chaudhry drains were then placed lateral to the main incision and then draped across the hematoma site. The gluteal muscles were then separately closed with #1 Vicryl stitch, subcutaneous tissue with some 4-0 Vicryl stitch, and the skin with evan. Drains affixed with some 4-0 Vicryl stitch, and the patient was taken to the recovery room in satisfactory condition. There were no evident complications. Fidencio Bush MD /[id number]
== END 2020-07-09 11:15 | disposition home or self-care (01) | DRG 580 ==
LOC: JP.ED 18:39 → JP.MS 21:21
PROVIDERS: ADMIT Surgery; ATTEND Surgery
PROC: 0K9P0ZZ Drainage of Left Hip Muscle, Open Approach (ICD-10-PCS; principal; 2020-07-08)
DX: S30.0XXA Contusion of lower back and pelvis, initial encounter (principal); N30.00 Acute cystitis without hematuria; I10 Essential (primary) hypertension; F41.1 Generalized anxiety disorder; E66.9 Obesity, unspecified; H54.7 Unspecified visual loss; E78.00 Pure hypercholesterolemia, unspecified; Z20.822 Contact with and (suspected) exposure to COVID-19; K21.9 Gastro-esophageal reflux disease without esophagitis; M54.9 Dorsalgia, unspecified; G89.29 Other chronic pain; M19.90 Unspecified osteoarthritis, unspecified site; Z87.891 Personal history of nicotine dependence; Z88.0 Allergy status to penicillin; Z79.82 Long term (current) use of aspirin; Z79.899 Other long term (current) drug therapy; W00.1XXA Fall from stairs and steps due to ice and snow, initial encounter
CPT/HCPCS: 36415; 72192; 80048; 80053; 83735; 84100; 85025; 85027; 96365; 96372; 96375; 96376; 99284; 99284-25; A9270-GY; J0330; J0694; J1100; J1170; J2001; J2020; J2185; J2405; J2704; J2710; J3010; J3480; J3490; J7030; J7120; J7121; U0002

== ENCOUNTER 2020-07-16 08:24 | Day surgery (SDC) | payer OTHER ==
[~2020-07-16 08:24] MED LIST: Bupivacaine 0.5% 50 ML MDV ONE; Dexamethasone 4 MG/ML SDV ONE; Glycopyrrolate 0.2 MG/ML 5 ML MDV ONE; Lidocaine 1% with EPINEPHrine 1:100,000 50 ML MDV ONE; Meropenem 500 MG SDV ONE; Neostigmine Methylsulfate 1 MG/ML 5 ML Syringe ONE; Ondansetron 4 MG/2 ML SDV ONE; Propofol 200 MG/20 ML SDV ONE; Rocuronium 50 MG/5 ML Vial ONE; Succinylcholine 200 MG/10 ML MDV ONE; fentaNYL 250 MCG/5 ML SDV ONE
[2020-07-16] MEDS ORDERED: Acetaminophen 500 MG Tab PO ONE (08:45)
[2020-07-16] MEDS ORDERED: Dextrose 5%-Lactated Ringers 1,000 ML IV SCH (09:00)
[2020-07-16] MEDS ORDERED: Levofloxacin/Dextrose 5%-Water 500 MG in Premix Bag 1 BAG IV ONE (09:45)
[2020-07-16] MEDS ORDERED: Mupirocin Oint 22 GM Tube ONE (11:08)
[2020-07-16] MEDS ORDERED: fentaNYL 100 MCG/2 ML SDV IVPUSH ONE (11:44)
[2020-07-16] MEDS ORDERED: hydrOXYzine HCL 100 MG/2 ML SDV IM ONE (11:44)
[2020-07-16 13:31] VITALS: BP 87/53; PULSE 68
--- NOTE | 2020-07-26 10:52 | OR ---
DATE OF PROCEDURE: 07/16/2020 SURGEON: Fidencio Bush MD PREOPERATIVE DIAGNOSIS: Recurrent subfascial hematoma of the left buttock area. POSTOPERATIVE DIAGNOSIS: Recurrent subfascial hematoma of the left buttock area. PROCEDURE: Incision and drainage of recurrent subfascial hematoma, left buttock area ([id number]). ANESTHESIA: General. LEARNING ADMINISTRATOR: Chika Corral PA-C INDICATIONS FOR PROCEDURE: A year-old who is roughly a week status post drainage of a traumatic hematoma, which was located in the subfascial area of the left buttock region extending somewhat across the midline to the right. The underlying musculature was quite friable and prone to oozing after original drainage site and the patient presented yesterday then with a large recurrence of the hematoma. Plan to proceed with drainage of the hematoma once again, and hopefully at this point, the tissues are such that hemostasis will be maintained postoperatively. Potential risks including bleeding, infection, further problems with hematoma redeveloping were gone over, and the patient wishes to proceed. DETAILS OF PROCEDURE: The patient was taken to the operating room and placed in the supine position. After general endotracheal anesthesia was induced, she was placed in the prone position and the left leg and surrounding areas were then prepped and draped. Previous evan were removed along with the previous Colby-Chaudhry drains. The incision was then opened in the deeper layers including the fascia overlying the gluteal muscles where roughly 300 mL of old blood and clots were encountered. This was evacuated by means of suction and manually. Once all of the clot appeared to be evacuated, the wound was irrigated with meropenem and Zyvox-containing saline solution. Two additional Colby-Chaudhry drains were placed somewhat superior to the previous sites and the wound then closed with layers of 2-0 Vicryl stitch deep to the fascial level and 3-0 Vicryl subcutaneous stitch and evan for the skin. Drains were sutured to the skin with some 3-0 Vicryl stitch as well. Cultures of the fluid were obtained, although this was not grossly infected and Gram stain did not show any organisms. Dressing was applied. The patient was taken to the recovery room in satisfactory condition. Physician anesthesia assistant, Chika Corral, played an essential role in assisting in this case helping to position the patient, retract structures as needed, as well as suturing and cutting sutures when indicated. Her presence improved patient safety and decreased the operative time. Fidencio Bush MD /[id number]
== END 2020-07-16 14:00 | disposition home or self-care (01) ==
LOC: JP.SDS 08:24
PROVIDERS: ATTEND Surgery
DX: S30.0XXA Contusion of lower back and pelvis, initial encounter (principal); E78.00 Pure hypercholesterolemia, unspecified; I10 Essential (primary) hypertension; E66.9 Obesity, unspecified; K21.9 Gastro-esophageal reflux disease without esophagitis; N39.0 Urinary tract infection, site not specified; Z01.812 Encounter for preprocedural laboratory examination; Z20.822 Contact with and (suspected) exposure to COVID-19; Z88.0 Allergy status to penicillin; Z79.82 Long term (current) use of aspirin; Z79.899 Other long term (current) drug therapy; Z87.891 Personal history of nicotine dependence; Z68.35 Body mass index [BMI] 35.0-35.9, adult
CPT/HCPCS: 26990; 36415; 80048; 85027; 87070; 87075; 87205; A9270; J0330; J1100; J1956; J2020; J2185; J2405; J2704; J2710; J3010; J3410; J3490; J7121

== ENCOUNTER 2020-07-30 06:25 | Day surgery (SDC) | payer OTHER ==
[2020-07-30] MEDS ORDERED: Lidocaine 1% with EPINEPHrine 1:100,000 50 ML MDV ONE (06:56)
[2020-07-30] MEDS ORDERED: Bupivacaine 0.5% 50 ML MDV ONE (06:56)
[2020-07-30] MEDS ORDERED: Dextrose 5%-Lactated Ringers 1,000 ML IV SCH (07:00)
[2020-07-30] MEDS ORDERED: fentaNYL 100 MCG/2 ML SDV ONE (07:01)
[2020-07-30] MEDS ORDERED: Propofol 200 MG/20 ML SDV ONE (07:01)
[2020-07-30] MEDS ORDERED: Midazolam 1 MG/ML 2 ML SDV ONE (07:01)
[2020-07-30] MEDS ORDERED: Linezolid 600 MG in Premix Bag 1 BAG IV ONE (08:15)
[2020-07-30] MEDS ORDERED: Mupirocin Oint 22 GM Tube ONE (08:42)
[2020-07-30 09:53] VITALS: BP 104/63; PULSE 54
--- NOTE | 2020-08-07 08:26 | OR ---
DATE OF PROCEDURE: 07/30/2020 SURGEON: Fidencio Bush MD PREOPERATIVE DIAGNOSIS: Recurrent hematoma, left buttock area. POSTOPERATIVE DIAGNOSIS: Recurrent subfascial hematoma, left buttock area. OPERATIVE PROCEDURE: Incision and drainage of recurrent subfascial hematoma, left buttock area ([id number]). ANESTHESIA: General. PATCHER WOOD WELDER: ELDA Molina assistant public defender. INDICATION FOR PROCEDURE: The patient presents with recurrence of fluid collection in the left buttock area. This had been drained previously with subsequent removal of the drains and re-development now of significant amount of fluid and/or blood in the pocket. This is located in the subfascial area over the gluteal musculature of the left side extending onto the right side in the midline hematoma formation was over the periosteum of the sacrum. The plan is to proceed with a drainage of this once again. Potential risks including bleeding and infection were reviewed, and the patient wishes to proceed. DETAILS OF PROCEDURE: The patient was taken to the operating room and placed in a supine position. After general endotracheal anesthesia was induced, she was placed into a prone position and the left buttock and surrounding areas were prepped and draped. A small incision was then made over the lateral aspect of the left buttock area and a clamp then placed down into the subcutaneous tissue and fascia. Thin bloody fluid was then aspirated over this, then a 16-Singaporean introducer was placed into the cavity, and through this, a 15- Singaporean round Colby-Chaudhry drain placed without difficulty. This was sutured in position. The bloody fluid in this case was thin enough to be by means of the Colby-Chaudhry drain. Cultures were obtained and did not appear to be grossly infected. The incision and drain site were then sutured with some 3-0 Vicryl stitch and pressure dressing applied. The patient was taken to the recovery room in satisfactory condition. Fidencio Bush MD /[id number]
== END 2020-07-30 10:13 | disposition home or self-care (01) ==
LOC: JP.SDS 06:25
PROVIDERS: ATTEND Surgery
DX: S30.0XXA Contusion of lower back and pelvis, initial encounter (principal); I10 Essential (primary) hypertension; Z88.0 Allergy status to penicillin; Z20.822 Contact with and (suspected) exposure to COVID-19; Z01.812 Encounter for preprocedural laboratory examination
CPT/HCPCS: 87070; 87075; 87205; A9270-GY; J2020; J2250; J2704; J3010; J3490; J7121; U0002

== ENCOUNTER 2020-12-19 13:11 | Emergency (ER) | payer OTHER ==
[2020-12-19 14:15] VITALS: BP 141/82; PULSE 73
[2020-12-19] MEDS ORDERED: Bacitracin Oint 1 GM U/D Packet TOP ONE (14:35)
--- NOTE | 2020-12-19 14:39 | EDM.PDOC ---
ED HPI GENERAL MEDICAL PROBLEM - General Chief Complaint: Laceration Stated Complaint: CUT LEFT THUMB Time Seen by Provider: 12/19/20 14:26 Source of Information: Reports: Patient History Limitations: Reports: No Limitations - History of Present Illness INITIAL COMMENTS - FREE TEXT/NARRATIVE: 55 yo female presents to ER after cutting left thumb tip while cutting meat. generally healthy. tetanus up to date Left Finger-Thumb Pain Score (Numeric/FACES): 4 - Related Data Allergies Allergy/AdvReac Type Severity Reaction Status Date / Time Penicillins Allergy Rash Verified 12/19/20 14:21 Home Meds: Home Meds Aspirin [Children's Aspirin] 81 mg PO DAILY 06/24/16 [History] Lisinopril/Hydrochlorothiazide [Lisinopril-Hctz 10-12.5 mg Tab] 1 tab PO DAILY 06/24/16 [History] Metoprolol Tartrate 100 mg PO DAILY 06/24/16 [History] Venlafaxine [Effexor] 225 mg PO DAILY 06/24/16 [History] Escitalopram [Lexapro] 20 mg PO DAILY 07/11/18 [History] Magnesium Oxide [Magnesium] 400 mg PO DAILY 08/12/19 [History] atorvaSTATin [Lipitor] 40 mg PO DAILY 07/07/20 [History] Acetaminophen [Tylenol] 650 mg PO Q6H PRN 07/16/20 [History] Past Medical History HEENT History: Reports: Impaired Vision Cardiovascular History: Reports: High Cholesterol, Hypertension Respiratory History: Reports: None Gastrointestinal History: Reports: GERD Genitourinary History: Reports: 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: Musculoskeletal History: Reports: Back Pain, Chronic, Osteoarthritis Neurological History: Reports: Migraines Psychiatric History: Reports: Depression, Panic Attack Endocrine/Metabolic History: Reports: Obesity/BMI 30+ Hematologic History: Reports: None Immunologic History: Reports: None Oncologic (Cancer) History: Reports: None Dermatologic History: Reports: None - Infectious Disease History Infectious Disease History: Reports: Chicken Pox - Past Surgical History HEENT Surgical History: Reports: None Cardiovascular Surgical History: Reports: None Respiratory Surgical History: Reports: None GI Surgical History: Reports: Appendectomy, Colonoscopy, EGD Female Surgical History: Reports: None Endocrine Surgical History: Reports: None Neurological Surgical History: Reports: None Musculoskeletal Surgical History: Reports: None Oncologic Surgical History: Reports: None Dermatological Surgical History: Reports: None Social & Family History - Family History Family Medical History: No Pertinent Family History OBGYN: Reports: None Musculoskeletal: Reports: None Neurological: Reports: CVA Psychiatric: Reports: None Endocrine/Metabolic: Reports: Diabetes, type II Hematologic: Reports: None Immunologic: Reports: None Dermatologic: Reports: None Oncologic: Reports: Skin - Tobacco Use Tobacco Use Status *Q: Never Tobacco User - Caffeine Use Caffeine Use: Reports: Coffee Caffeine Use Comment: 4 daily ED ROS GENERAL - Review of Systems Review Of Systems: See Below Constitutional: Denies: Fever Respiratory: Denies: Shortness of Breath, Wheezing Cardiovascular: Denies: Chest Pain Skin: Reports: Wound ED EXAM, SKIN/RASH Exam: See Below Exam Limited By: No Limitations General Appearance: Alert, WD/WN, No Apparent Distress Respiratory/Chest: No Respiratory Distress Skin: Warm, Dry, Intact Location, Skin: Upper Extremity, Left Characteristics: Other (flap laceration 1.5 cm) ED SKIN PROCEDURES - Laceration/Wound Repair Left Distal Digit - 1st (Thumb) Appearance: Superficial Distal NVT: Neuro & Vascular Intact Anesthetic Type: Digital Local Anesthesia - Lidocaine (Xylocaine): 1% Plain Local Anesthetic Volume: 4cc Exploration/Debridement/Repair: Wound Explored, In a Bloodless Field, Explored to Base, Minimal Debridement Closed with: Sutures Lac/Wound length In cm: 1.5 Suture Size: 4-0 # of Sutures: 5 Suture Type: Nylon, Interrupted Course - Vital Signs Last Recorded V/S: Last Vital Signs Temp 35.1 C L 12/19/20 14:16 Pulse 73 12/19/20 14:16 Resp 17 12/19/20 14:16 BP 141/82 H 12/19/20 14:16 Pulse Ox 95 12/19/20 14:16 - Orders/Labs/Meds Meds: Medications Discontinued Medications Generic Name Dose Route Start Last Admin Trade Name Freq PRN Reason Stop Dose Admin Bacitracin 1 dose 12/19/20 14:35 12/19/20 14:44 Bacitracin Oint 1 Gm U/D Packet TOP 12/19/20 14:36 1 dose ONETIME ONE Administration Lidocaine HCl 5 ml 12/19/20 14:35 12/19/20 14:44 Lidocaine 1% 5 Ml Sdv INJECT 12/19/20 14:36 5 ml ONETIME ONE Administration Departure - Departure Time of Disposition: 15:25 Disposition: Home, Self-Care 01 Condition: Good Clinical Impression: Laceration of thumb Qualifiers: Encounter type: initial encounter Damage to nail status: without damage Foreign body presence: without foreign body Laterality: left Qualified Code(s): S61.012A - Laceration without foreign body of left thumb without damage to nail, initial encounter - Discharge Information *PRESCRIPTION DRUG MONITORING PROGRAM REVIEWED*: Not Applicable *COPY OF PRESCRIPTION DRUG MONITORING REPORT IN PATIENT TOM: Not Applicable Instructions: Sutures, [place], or Adhesive Wound Closure, [id number] Referrals: Claudia Everett DO [Primary Care Provider] - Forms: ED Department Discharge Additional Instructions: keep dressing in place for 24 hours, thereafter wash with warm soapy water pat dry keep clean do not soak wound sutures out in 10 days observe for signs of infection: fire engine red, increase in pain, purulent drainage Sepsis Event Note (ED) - Evaluation Sepsis Screening Result: No Definite Risk - Focused Exam Vital Signs: Vital Signs Temp Pulse Resp BP Pulse Ox 12/19/20 14:16 35.1 C L 73 17 141/82 H 95 12/19/20 14:14 35.1 C L 73 17 141/82 H 95
== END 2020-12-19 15:46 | disposition home or self-care (01) ==
LOC: JP.ED 13:11
DX: S61.012A Laceration without foreign body of left thumb without damage to nail, initial encounter (principal); E78.00 Pure hypercholesterolemia, unspecified; I10 Essential (primary) hypertension; E66.9 Obesity, unspecified; Z68.35 Body mass index [BMI] 35.0-35.9, adult; Z88.0 Allergy status to penicillin; Z79.82 Long term (current) use of aspirin; Z79.899 Other long term (current) drug therapy; W26.0XXA Contact with knife, initial encounter; Y99.0 Civilian activity done for income or pay
CPT/HCPCS: 12001; 99282; 99283-25

== ENCOUNTER 2023-01-20 06:54 | Day surgery (SDC) | payer OTHER ==
[~2023-01-20 06:54] MED LIST changes: +Bacitracin Oint 1 GM U/D Packet ONE; -Dexamethasone 4 MG/ML SDV ONE; -Glycopyrrolate 0.2 MG/ML 5 ML MDV ONE; -Meropenem 500 MG SDV ONE; -Neostigmine Methylsulfate 1 MG/ML 5 ML Syringe ONE; -Ondansetron 4 MG/2 ML SDV ONE; -Propofol 200 MG/20 ML SDV ONE; -Rocuronium 50 MG/5 ML Vial ONE; -Succinylcholine 200 MG/10 ML MDV ONE; -fentaNYL 250 MCG/5 ML SDV ONE
[2023-01-20] MEDS ORDERED: Propofol 200 MG/20 ML SDV ONE ×3 (07:16→08:31)
[2023-01-20] MEDS ORDERED: Midazolam 1 MG/ML 2 ML SDV ONE (07:16)
[2023-01-20] MEDS ORDERED: fentaNYL 100 MCG/2 ML SDV ONE (07:16)
[2023-01-20] MEDS ORDERED: Acetaminophen 500 MG Tab PO ONE (08:00)
[2023-01-20] MEDS ORDERED: Lactated Ringers 1,000 ML IV SCH (08:30)
[2023-01-20] MEDS ORDERED: Clindamycin Phosphate in D5W 900 MG in Premix Bag 1 BAG IV ONE ×2 (09:15)
[2023-01-20 10:02] VITALS: BP 136/75; PULSE 64
== END 2023-01-20 10:15 | disposition home or self-care (01) ==
LOC: JP.SDS 06:54
PROVIDERS: ATTEND Student in an Organized Health Care Education/Training Program
DX: D17.1 Benign lipomatous neoplasm of skin and subcutaneous tissue of trunk (principal); I10 Essential (primary) hypertension; F32.A Depression, unspecified; K21.9 Gastro-esophageal reflux disease without esophagitis; E78.2 Mixed hyperlipidemia; M19.90 Unspecified osteoarthritis, unspecified site; E66.9 Obesity, unspecified; F41.1 Generalized anxiety disorder; F32.9 Major depressive disorder, single episode, unspecified; Z88.0 Allergy status to penicillin; Z79.82 Long term (current) use of aspirin; Z68.34 Body mass index [BMI] 34.0-34.9, adult; Z79.899 Other long term (current) drug therapy
CPT/HCPCS: 21931; 88304; A9270; J2250; J2704; J3010; J3490; J7120

== ENCOUNTER 2024-05-29 10:48 | Inpatient (IN) | payer OTHER ==
[2024-05-29] MEDS ORDERED: HYDROmorphone 1 MG/ML Syringe IVPUSH PRN (12:04)
[2024-05-29] MEDS ORDERED: Ondansetron 4 MG Tab.DIS PO PRN (12:04)
[2024-05-29] MEDS ORDERED: Ondansetron 4 MG/2 ML SDV IV PRN (12:04)
[2024-05-29] MEDS ORDERED: Magnesium Hydroxide 400 MG/5 ML Susp 30 ML Cup PO PRN (12:04)
[2024-05-29] MEDS ORDERED: Sennosides/Docusate Sodium 50-8.6 MG Tab PO PRN (12:04)
[2024-05-29] MEDS ORDERED: Melatonin 3 MG Tab PO PRN (12:06)
[2024-05-29 12:30] LABS: BASOPHILS ABSOLUTE AUTO 0.03 K/uL (0.00-0.10); BASOPHILS PERCENT AUTO 0.4 % (0.1-1.3); EOSINOPHILS ABSOLUTE AUTO 0.03 K/uL (0.00-0.40); EOSINOPHILS PERCENT AUTO 0.4 % (0.0-5.4); HEMATOCRIT 34.7 % (34.3-46.0); HEMOGLOBIN 11.6 g/dL (11.2-15.5); IMMATURE GRAN ABSOLUTE AUTO 0.05 K/uL (0.00-0.23); IMMATURE GRAN PERCENT AUTO 0.6 % (0.0-0.7); LYMPHOCYTES ABSOLUTE AUTO 0.68 K/uL (0.8-3.3); LYMPHOCYTES PERCENT AUTO 8.6 % (11.4-47.7); MEAN CORPUSCULAR HEMOGLOBIN 31.7 pg (31.6-35.5); MEAN CORPUSCULAR HGB CONC 33.4 g/dL (31.6-35.5); MEAN CORPUSCULAR VOLUME 94.8 fL (81.4-99.0); MONOCYTES ABSOLUTE AUTO 0.44 K/uL (0.20-0.90); MONOCYTES PERCENT AUTO 5.6 % (3.3-12.6); NEUTROPHILS ABSOLUTE AUTO 6.66 K/uL (1.0-7.6); NEUTROPHILS PERCENT AUTO 84.4 % (40.0-78.1); PLATELET COUNT,PLT 204 K/uL (130-375); RED BLOOD CELL COUNT 3.66 M/uL (3.77-5.24); WHITE BLOOD CELL COUNT,WBC 7.9 K/uL (3.2-11.0)
[2024-05-29 12:46] LABS: CALCIUM 9.4 mg/dL (8.5-10.1); CREATININE 0.9 mg/dL (0.6-1.0); EST CRCL DRUG DOSING (CG) 64.64 mL/min; MAGNESIUM 1.8 mg/dL (1.8-2.4)
[2024-05-29 12:47] LABS: INR 1.2; PROTHROMBIN TIME 12.4 sec (9.2-10.6)
[2024-05-29] MEDS: oxyCODONE 5 MG Tab PO PRN (12:49)
[2024-05-29 12:50] LABS: ANION GAP 9.9 mmol/L (5.0-14.0); POTASSIUM,K 2.9 mmol/L (3.6-5.2)
[2024-05-29] MEDS: Acetaminophen 500 MG Tab PO SCH (13:21)
[2024-05-29] MEDS: Potassium Chloride 20 MEQ Tab.ER PO ONE ×2 (13:22→20:56)
[2024-05-29] MEDS: Gabapentin 300 MG Cap PO SCH (15:39)
[2024-05-29] MEDS: Potassium Chloride 10 MEQ in Premix Bag 1 BAG IV ONE (20:42)
[2024-05-29] MEDS: Lactobacillus Rhamnosus GG (Probiotic) Cap PO SCH (20:58)
[2024-05-29] MEDS: traZODone 50 MG Tab PO SCH (20:58)
[2024-05-29] MEDS: atorvaSTATin 20 MG Tab PO SCH (20:58)
[2024-05-29] MEDS ORDERED: TRAZODONE HCL 300 MG PO SCH (21:00)
[2024-05-29] MEDS ORDERED: Non-Formulary Medication 1 Each (Atorvastatin [Lipitor] 40 MG Tablet) PO SCH (21:00)
[2024-05-29] MEDS: VANCOmycin 1.25 GM in Sodium Chloride 0.9% 250 ML IV SCH (22:00)
[2024-05-30] MEDS: Potassium Chloride 10 MEQ in Premix Bag 1 BAG IV ONE ×2 (01:18→02:33)
[2024-05-30 05:48] LABS: HEMATOCRIT 32.8 % (34.3-46.0); HEMOGLOBIN 10.7 g/dL (11.2-15.5); MEAN CORPUSCULAR HGB CONC 32.6 g/dL (31.6-35.5); MEAN CORPUSCULAR VOLUME 95.1 fL (81.4-99.0); RED BLOOD CELL COUNT 3.45 M/uL (3.77-5.24); WHITE BLOOD CELL COUNT,WBC 4.8 K/uL (3.2-11.0)
[2024-05-30 06:09] LABS: CALCIUM 9.4 mg/dL (8.5-10.1); CREATININE 0.8 mg/dL (0.6-1.0); EST CRCL DRUG DOSING (CG) 72.72 mL/min; POTASSIUM,K 3.5 mmol/L (3.6-5.2)
[2024-05-30 06:36] LABS: ANION GAP 8.5 mmol/L (5.0-14.0)
[2024-05-30 06:38] LABS: C-REACTIVE PROTEIN 28.28 mg/dL (<0.50)
[2024-05-30] MEDS ORDERED: Bupivacaine 0.5% 50 ML MDV ONE (06:49)
[2024-05-30] MEDS ORDERED: Lidocaine 1% with EPINEPHrine 1:100,000 50 ML MDV ONE (06:49)
[2024-05-30] MEDS: Pantoprazole 40 MG Tab.CR PO SCH (07:04)
[2024-05-30] MEDS ORDERED: fentaNYL 100 MCG/2 ML SDV ONE (07:06)
[2024-05-30] MEDS ORDERED: Midazolam 1 MG/ML 2 ML SDV ONE (07:07)
[2024-05-30] MEDS ORDERED: Propofol 200 MG/20 ML SDV ONE ×2 (07:07→07:49)
[2024-05-30] MEDS: Meropenem 1 GM in Sodium Chloride 0.9% 100 ML IV SCH (08:00)
[2024-05-30] MEDS: Aspirin 81 MG Tab.Chew PO SCH (08:53)
[2024-05-30] MEDS: Venlafaxine 75 MG Cap.ER PO SCH (08:55)
[2024-05-30] MEDS: Hydrochlorothiazide 12.5 MG Cap PO SCH (08:57)
[2024-05-30] MEDS: Metoprolol Tartrate 50 MG Tab PO SCH (08:57)
[2024-05-30] MEDS: Lisinopril 10 MG Tab PO SCH (08:59)
[2024-05-30] MEDS ORDERED: Venlafaxine 75 MG Tab PO SCH (09:00)
[2024-05-30] MEDS: VANCOmycin 1.5 GM in Sodium Chloride 0.9% 250 ML IV SCH (10:13)
[2024-05-30] MEDS: HYDROmorphone 0.5 MG/0.5 ML Syringe IVPUSH PRN (19:32)
[2024-05-31 05:02] LABS: HEMATOCRIT 33.1 % (34.3-46.0); HEMOGLOBIN 10.8 g/dL (11.2-15.5); MEAN CORPUSCULAR HEMOGLOBIN 31.1 pg (31.6-35.5); MEAN CORPUSCULAR HGB CONC 32.6 g/dL (31.6-35.5); MEAN CORPUSCULAR VOLUME 95.4 fL (81.4-99.0); RED BLOOD CELL COUNT 3.47 M/uL (3.77-5.24)
[2024-05-31 05:11] LABS: CALCIUM 8.9 mg/dL (8.5-10.1); CREATININE 0.8 mg/dL (0.6-1.0); EST CRCL DRUG DOSING (CG) 72.72 mL/min; POTASSIUM,K 3.4 mmol/L (3.6-5.2)
[2024-05-31 05:17] LABS: ANION GAP 9.4 mmol/L (5.0-14.0)
[2024-05-31] MEDS: Sodium Chloride 0.9% 10 ML Syringe IV PRN (08:33)
[2024-05-31] MEDS: Potassium Chloride 20 MEQ Tab.ER PO ONE (09:06)
[2024-06-01 04:58] LABS: HEMATOCRIT 34.7 % (34.3-46.0); HEMOGLOBIN 11.3 g/dL (11.2-15.5); MEAN CORPUSCULAR HGB CONC 32.6 g/dL (31.6-35.5); MEAN CORPUSCULAR VOLUME 95.1 fL (81.4-99.0); RED BLOOD CELL COUNT 3.65 M/uL (3.77-5.24); WHITE BLOOD CELL COUNT,WBC 5.8 K/uL (3.2-11.0)
[2024-06-01 05:16] LABS: C-REACTIVE PROTEIN 10.33 mg/dL (<0.50); CREATININE 0.7 mg/dL (0.6-1.0); EST CRCL DRUG DOSING (CG) 83.11 mL/min; POTASSIUM,K 4.2 mmol/L (3.6-5.2)
[2024-06-01 05:25] LABS: ANION GAP 8.2 mmol/L (5.0-14.0)
[2024-06-01] MEDS: Ertapenem 1 GM in Sodium Chloride 0.9% 50 ML IV SCH (08:58)
[2024-06-01] MEDS: Alteplase 2 MG Vial IVPUSH ONE (10:02)
[2024-06-01 11:28] VITALS: BP 128/70; PULSE 67
== END 2024-06-01 13:45 | disposition home or self-care (01) | DRG 464 ==
LOC: JP.MS 10:48
PROVIDERS: ADMIT Internal Medicine; ATTEND Surgery
PROC: 0JBQ0ZZ Excision of Right Foot Subcutaneous Tissue and Fascia, Open Approach (ICD-10-PCS; principal; 2024-05-30 07:30)
DX: M86.171 Other acute osteomyelitis, right ankle and foot (principal); L03.115 Cellulitis of right lower limb; H54.7 Unspecified visual loss; I10 Essential (primary) hypertension; K21.9 Gastro-esophageal reflux disease without esophagitis; M19.90 Unspecified osteoarthritis, unspecified site; G43.909 Migraine, unspecified, not intractable, without status migrainosus; F32.A Depression, unspecified; E66.9 Obesity, unspecified; E78.00 Pure hypercholesterolemia, unspecified; E87.6 Hypokalemia; E11.42 Type 2 diabetes mellitus with diabetic polyneuropathy; F10.20 Alcohol dependence, uncomplicated; Z88.0 Allergy status to penicillin; Z88.2 Allergy status to sulfonamides; Z79.82 Long term (current) use of aspirin; Z79.1 Long term (current) use of non-steroidal anti-inflammatories (NSAID); Z79.2 Long term (current) use of antibiotics; Z79.899 Other long term (current) drug therapy; Z79.02 Long term (current) use of antithrombotics/antiplatelets; Z68.32 Body mass index [BMI] 32.0-32.9, adult; Z90.49 Acquired absence of other specified parts of digestive tract
CPT/HCPCS: 36415; 80048; 80202; 83735; 84132; 85025; 85027; 85610; 86140; 87070; 87075; 87077; 87205; 97116-GP; 97161-GP; 99222; 99232; 99238; A9270-GY; J0665; J1171; J1335; J2185; J2250; J2704; J2997; J3010; J3480; J3490; J7050

== ENCOUNTER 2024-06-15 11:04 | Emergency (ER) | payer OTHER ==
[2024-06-15 11:18] VITALS: BP 151/89; PULSE 74
[2024-06-15] MEDS: Cyclobenzaprine 10 MG Tab PO ONE (12:42)
== END 2024-06-15 15:51 | disposition home or self-care (01) ==
LOC: JP.ED 11:04
DX: M79.602 Pain in left arm (principal); I10 Essential (primary) hypertension; E78.00 Pure hypercholesterolemia, unspecified; K21.9 Gastro-esophageal reflux disease without esophagitis; M19.90 Unspecified osteoarthritis, unspecified site; E66.9 Obesity, unspecified; Z90.49 Acquired absence of other specified parts of digestive tract; Z87.891 Personal history of nicotine dependence; Z88.0 Allergy status to penicillin; Z88.2 Allergy status to sulfonamides; Z79.82 Long term (current) use of aspirin; Z79.899 Other long term (current) drug therapy; Z68.32 Body mass index [BMI] 32.0-32.9, adult
CPT/HCPCS: 36415; 73060; 85379; 93971; 99284; A9270

== ENCOUNTER 2024-11-09 10:49 | Emergency (ER) | payer OTHER ==
[2024-11-09 11:05] VITALS: BP 169/92; PULSE 78
== END 2024-11-09 11:33 | disposition home or self-care (01) ==
LOC: JP.ED 10:49
DX: S40.861A Insect bite (nonvenomous) of right upper arm, initial encounter (principal); I10 Essential (primary) hypertension; E78.00 Pure hypercholesterolemia, unspecified; K21.9 Gastro-esophageal reflux disease without esophagitis; E11.9 Type 2 diabetes mellitus without complications; E66.9 Obesity, unspecified; Z79.899 Other long term (current) drug therapy; Z79.82 Long term (current) use of aspirin; Z88.0 Allergy status to penicillin; Z88.2 Allergy status to sulfonamides; Z68.33 Body mass index [BMI] 33.0-33.9, adult; W57.XXXA Bitten or stung by nonvenomous insect and other nonvenomous arthropods, initial encounter
CPT/HCPCS: 99283